=== PATIENT | female | born 1980 | race African-American/Black ===

== ENCOUNTER 2019-03-09 14:48 | Emergency (ER) | payer OTHER ==
[~2019-03-09] VITALS: Ht 170.2 cm; Wt 77.1 kg
[~2019-03-09 14:48] MED LIST: ESTRADIOL 1 MG T1 M1 PO; MECLIZINE HCL25 M1 PO; TRIBENZOR 40-51 EAC1 PO; VALIUM2 MG PO; ZOFRAN4 MG PO
[2019-03-09] MEDS ORDERED: IRBESARTAN300 MG PO (16:33)
[2019-03-09] MEDS ORDERED: CHLORTHALIDONE25 MG PO (16:33)
[2019-03-09] MEDS ORDERED: CLONIDINE HCL0.2 M2 PO (16:33)
[2019-03-09] MEDS ORDERED: PROGESTERO50 MG/1 M3 PO (16:33)
[2019-03-09] MEDS ORDERED: TRAMADOL 50 MG50 MG PO (16:34)
[2019-03-09] MEDS ORDERED: [UNRECOGNIZED DRUG - OTHER] INJECTION (16:34)
[2019-03-09] MEDS ORDERED: NORCO 5-325 TA1 EAC1 PO (16:50)
[2019-03-09 17:08] VITALS: BP 155/104
== END 2019-03-09 17:08 | disposition home or self-care (01) ==
LOC: ER 14:48
DX: S06.0X0A Concussion without loss of consciousness, initial encounter (principal); S72.002A Fracture of unspecified part of neck of left femur, initial encounter for closed fracture; R11.0 Nausea; I10 Essential (primary) hypertension; Z79.899 Other long term (current) drug therapy; W18.12XA Fall from or off toilet with subsequent striking against object, initial encounter; Y93.89 Activity, other specified; Y92.89 Other specified places as the place of occurrence of the external cause; Y99.8 Other external cause status